=== PATIENT | male | born 1960 | race Native Hawaiian/Other Pacific Islander ===

== ENCOUNTER 2020-04-18 06:41 | Emergency (ER) | payer OTHER ==
[~2020-04-18] VITALS: Ht 162.6 cm; Wt 95.3 kg
[2020-04-18 06:55] VITALS: TEMP 97.9
[2020-04-18] MEDS ORDERED: BUSPIRONE30 MG PO (07:01)
[2020-04-18 07:28] VITALS: BP 139/77
== END 2020-04-18 07:35 | disposition home or self-care (01) ==
LOC: ED 06:41
DX: F41.8 Other specified anxiety disorders (principal)
CPT/HCPCS: 99282